=== PATIENT | female | born 2000 | race Caucasian/White ===

== ENCOUNTER 2024-07-16 11:13 | Emergency (ER) | payer OTHER, SELFPAY ==
[2024-07-16] VITALS (8 sets, daily range): BP systolic 103–145; BP diastolic 46–89; BMI 41.3
--- NOTE | 2024-07-16 11:45 | ED.GENMED ---
History of Present Illness
General
Chief Complaint: Abdominal Symptoms
Source: patient
Time Seen by Provider: 07/16/24 11:21
History of Present Illness
History of Present Illness:
23-year-old female presents emergency department with complaints of abdominal 'cramping' that is severe, started approximately 1130 last night and continues. The pain is across her upper abdomen but also her lower back. Sometimes it like
'burning'. There is no exacerbating relieving factors, but she does describe associated nausea without vomiting. She denies fever, chills, chest pain, dyspnea, urinary symptoms. She had a loose stool episode last night, without black stool or
blood. Patient is on a weight loss injection similar to Ozempic, she increased her dose to 10 mg approximately 2 weeks ago and wonders whether or not it could be related to this. She denies any other new meds. She denies sick contacts. Patient
was seen in urgent care before being referred to the emergency department
Past History
Past History
ED Past Medical History: Other (Polycystic ovarian syndrome)
ED Past Surgical History: None
Social History
Tobacco: Non-smoker
Alcohol: None
Drug: None
Personal: Single
Living: with family
Phy Exam
Physical Exam
Physical Exam:
GENERAL: Alert , in no apparent distress
EYE: pupils equal and reactive
NECK: Supple, no significant adenopathy.
ENT: o/p clr, mmm.
CARDIAC: Regular rate and rhythm .
LUNGS: Clear breath sounds bilaterally, no acute respiratory distress, no wheezes/rales/rhonchi
ABDOMEN: Soft, mild upper abdominal tenderness, no r/g, no cvat
NEUROLOGICAL: Alert and oriented, no focal neuro deficits
SKIN: Warm and dry, skin intact.
MUSCULOSKELETAL: No edema, well perfused.
PSYCH: Normal and appropriate interaction.
Course
Orders/Labs/Results
Orders:
Orders
07/16/24 11:45
CT Abd/Pel (IV only)-[facility] only Urgent
Comment:
Reason For Exam: upper abd pain
Test Result ONCE
07/16/24 11:57
Complete Blood Count/No Diff Urgent
Comprehensive Metabolic Panel Urgent
HCG, Serum Qualitative Screen Urgent
Lipase Urgent
Urinalysis Reflex To Culture Urgent
Date Specimen was Collected: 07/16/24
Time Specimen was Collected: 11:49
Urine Microscopic Reflex Cult Urgent
Urine Culture Urgent
ALVAREZ Source: U
Specimen Description:
Date Specimen was Collected: 07/16/24
Time Specimen was Collected: 11:49
07/16/24 15:22
Dicyclomine [Bentyl] 10 mg PO NOW STA
Abnormal Lab Results
07/16/24
11:57
MCH 31.7 H pg
(27.0-31.0)
Carbon Dioxide 19 L mmol/L
(22-30)
Leukocyte Esterase Rfl 1+ A
(Negative)
Urine Bacteria (Reflex) Few A
(Negative)
07/16/24 11:57
07/16/24 11:57
Vital Signs
Initial and Last Documented VS:
Initial Vital Signs
Temp Pulse Resp Pulse Ox
98.6 F 89 16 98
07/16/24 11:14 07/16/24 11:14 07/16/24 11:14 07/16/24 11:14
Last Documented Vital Signs
Temp Pulse Resp BP Pulse Ox
98.6 F 89 16 134/89 98
07/16/24 11:14 07/16/24 11:14 07/16/24 11:14 07/16/24 12:00 07/16/24 11:14
*Critical Care Note
Total Time (30-74mins, 75-104mins- exclusive of procedures): Not Applicable
Update Note
Update Note:
Patient presents to the Emergency Department with ____abdominal pain and nausea
Number and Complexity of Problems Addressed at the Encounter
� Chronic conditions affecting care:
� Acute Exacerbation and/or Progression of Chronic Illness:
� Differential Diagnosis includes: But not limited to , viral illness, pancreatitis, gallstones, etc.
Amount and/or Complexity of Data to be Reviewed and Analyzed
� I performed an independent evaluation of and my interpretation is:
EKG:
CT: Unremarkable read by radiology
Xrays:
Laboratory Studies: Unremarkable
Other:
� Review of other/old records reveals:
� Clinical information was obtained by an independent historian: Father who is bedside
� Prescriptions/Medications Considered but not given:
� Further testing considered but not performed:
Risk of Complications and/or Morbidity or Mortality of Patient Management
� Social determinants of health affecting care:
� Discussion with other providers (PCP, Hospitalists, Consultants, etc):
� Escalation of care including admission/observation vs risk of discharge considered: Reassessment patient is overall well-appearing, still describes abdominal cramping, no vomiting or diarrhea. Workup generally unremarkable
here. Did discuss the possibly the symptoms may be related to her GLP-1 medication. I advised her to discuss with her doctor later today, expressed to her the importance of follow-up and reasons to return to the ER. Will Rx Bentyl for cramp
symptoms.
ED Attending Note
-
Portions of this chart may have been created with voice recognition software.� Occasional wrong word or��sound alike� substitutions may have occurred due to the inherent limitations of voice recognition software.
Discharge Plan
Departure
Patient Disposition: Home (Routine Discharge)
Date of Disposition: 07/16/24
Time of Disposition: 15:23
Patient with high blood pressure during this ER visit?: Yes
Condition: Good
Discharge Problem:
Abdominal pain
Instructions: Abdominal Pain, BLOOD PRESSURE
Prescriptions:
New
dicyclomine 10 mg capsule
10 mg PO QID PRN (Reason: pain) Qty: 28 0RF
No Action
ibuprofen 600 MG tablet
600 mg PO Q6H Qty: 30 0RF
clindamycin HCl 150 MG capsule
150 mg PO BID
rifampin 150 MG capsule
150 mg PO BID
spironolactone 50 MG tablet
50 mg PO TID
etonogestrel-ethinyl estradiol [NuvaRing] 1 VAG.RING ring
1 vag.ring [id number] [id number]
Referrals:
NONE,* [Family Provider] -
Activity Restrictions/Additional Instructions:
PLEASE FOLLOW-UP WITH YOUR DOCTOR THIS WEEK. IF YOU DEVELOP FEVER, CHILLS, CHEST PAIN, SHORTNESS OF BREATH, INCREASING OR NEW PAIN, BLEEDING, RECURRENT VOMITING, OR OTHER WORRISOME SIGNS, PLEASE RETURN TO THE ER IMMEDIATELY.
Interventions
Interventions:
*Risk Screen - Suicide Last Done: 07/16/24 11:56
*Neglect/Abuse Screening Last Done: 07/16/24 11:56
ED- Fall Risk Assessment Last Done: 07/16/24 12:22
*ED COVID-19 Vaccine History Last Done: 07/16/24 11:56
TN-Ebfpmg-Hvzxltotih Assessment Last Done: 07/16/24 12:00
Discharge Date and Time
Print Language: [id number]
[2024-07-16 12:27] LABS: Hematocrit 38.3 % (37.0-47.0); Hemoglobin 13.5 g/dL (12.0-16.0); Mean Corp Hgb Conc. 35.2 g/dL (33.0-37.0); Mean Corpuscular Hgb 31.7 pg (27.0-31.0); Mean Corpuscular Volume 89.9 fL (81.0-99.0); Platelet Count 372 10^3/uL (130-400); Red Blood Cell Count 4.26 10^6/uL (4.20-5.40); Red Cell Dist. Width 12.5 % (11.5-14.5); White Blood Cell Count 6.3 10^3/uL (4.8-10.8)
[2024-07-16 12:30] LABS: Urine Albumin Negative (Neg - Trace); Urine Bilirubin Negative (Negative); Urine Character Clear (Clear); Urine Color Yellow; Urine Glucose Negative (Negative); Urine Ketone Negative (Negative); Urine Leukocyte 1+ (Negative); Urine Nitrite Negative (Negative); Urine Occult Blood Negative (Negative); Urine Urobilinogen Negative (Neg - 1+)
[2024-07-16 12:43] LABS: HCG, Serum Qualitative Screen Negative
[2024-07-16 12:46] LABS: Urine Bacteria Few (Negative); Urine Red Blood Cell 0-2 /HPF (0-2); Urine Squamous Cell 16-20 /LPF (Few)
[2024-07-16 12:59] LABS: ALT (SGPT) 19 U/L (0-35); AST (SGOT) 23 U/L (14-36); Albumin 4.5 g/dl (3.5-5.0); Alkaline Phosphatase 65 U/L (38-126); Blood Urea Nitrogen 10 mg/dl (7-17); Calcium 9.5 mg/dl (8.4-10.2); Carbon Dioxide 19 mmol/L (22-30); Chloride 106 mmol/L (98-107); Estimated Creatinine Clearance > 125 ml/min; Glucose 88 mg/dl (70-99); Lipase 122 U/L (23-300); Potassium 4.4 mmol/L (3.5-5.1); Sodium 139 mmol/L (135-145); Total Bilirubin 0.5 mg/dl (0.2-1.3); Total Protein 7.2 g/dl (6.3-8.2); eGFR > 60.00
[2024-07-16] MEDS: BENTYL 10 MG PO (16:03)
== END 2024-07-16 16:09 | disposition home or self-care (01) ==
LOC: EMR 11:13
PROVIDERS: EMERGENCY PHYSICIAN Emergency Medicine
DX: R10.10 Upper abdominal pain, unspecified (principal); M54.50 Low back pain, unspecified; R11.0 Nausea; R19.7 Diarrhea, unspecified; R03.0 Elevated blood-pressure reading, without diagnosis of hypertension; E28.2 Polycystic ovarian syndrome
CPT/HCPCS: 99285; 74177; 80053; 81003; 81015; 83690; 84703; 85027; 87086; Q9967